=== PATIENT | male | born 1935 | race Caucasian/White ===

== ENCOUNTER 2020-09-09 14:44 | Emergency (ER) | payer MEDICARE, OTHER ==
[~2020-09-09] VITALS: Ht 177.8 cm; Wt 73.0 kg
[~2020-09-09 14:44] MED LIST: DIGO250T4 PO; FURO20TA4 PO; METOPROLOL PO; NPH,100I SQ; WARF7.5T22 PO
[2020-09-09] MEDS ORDERED: ASPIRIN 325MG TABLET PO ONE (15:00)
[2020-09-09 16:33] LABS: BASOPHILS % 0.2 % (0.0-2.0); EOSINOPHILS % 0.7 % (0.0-5.0); HEMATOCRIT. 41.2 % (42.0-52.0); HEMOGLOBIN. 13.4 g/dL (14.0-18.0); LYMPHOCYTES % 9.8 % (20.0-50.0); MEAN CORPUSCULAR HEMOGLOBIN 31.1 pg (28.0-32.0); MEAN CORPUSCULAR VOLUME 95.4 fL (80.0-94.0); MEAN PLATELET VOLUME 8.1 fl (7.4-10.4); MONOCYTES % 5.3 % (2.0-8.0); PLATELET 153 x1000/uL (130-400); RED BLOOD CELL COUNT 4.32 mill/uL (4.7-6.1); RED CELL DISTRIBUTION WIDTH 15.2 % (11.6-14.6)
[2020-09-09 16:36] LABS: CHLORIDE 107 mEq/L (98-107)
[2020-09-09 16:39] LABS: INR 2.5; PROTHROMBIN TIME 25.2 sec (9.6-11.0)
[2020-09-09] MEDS ORDERED: METOPROLOL TARTRATE 25MG TABLET PO ONE (18:15)
[2020-09-09 20:38] VITALS: BP 131/63
== END 2020-09-09 20:57 | disposition home or self-care (01) ==
LOC: ER 14:51
DX: I48.91 Unspecified atrial fibrillation (principal); M79.641 Pain in right hand; E78.00 Pure hypercholesterolemia, unspecified; D64.9 Anemia, unspecified; I25.10 Atherosclerotic heart disease of native coronary artery without angina pectoris; K59.00 Constipation, unspecified; E11.9 Type 2 diabetes mellitus without complications; I10 Essential (primary) hypertension; I25.2 Old myocardial infarction; Z86.73 Personal history of transient ischemic attack (TIA), and cerebral infarction without residual deficits; Z87.440 Personal history of urinary (tract) infections; Z87.09 Personal history of other diseases of the respiratory system; Z95.0 Presence of cardiac pacemaker; Z79.899 Other long term (current) drug therapy
CPT/HCPCS: 36415; 71045; 80053; 80162; 83880; 84484; 85025; 86850; 86900; 93005; 99285

== ENCOUNTER 2021-06-06 09:16 | Emergency (ER) | payer OTHER ==
[~2021-06-06] VITALS: Ht 182.9 cm; Wt 75.0 kg
[2021-06-06] MEDS ORDERED: IOHEXOL-350 100 ML BOTTLE ONE ×2 (09:52→14:40)
[2021-06-06 10:42] LABS: BASOPHILS % 0.4 % (0.0-2.0); EOSINOPHILS % 0.9 % (0.0-5.0); HEMATOCRIT. 35.5 % (42.0-52.0); HEMOGLOBIN. 11.6 g/dL (14.0-18.0); LYMPHOCYTES % 29.5 % (20.0-50.0); MEAN CORPUSCULAR HEMOGLOBIN 29.3 pg (28.0-32.0); MEAN CORPUSCULAR VOLUME 89.6 fL (80.0-94.0); MEAN PLATELET VOLUME 7.4 fl (7.4-10.4); MONOCYTES % 10.2 % (2.0-8.0); PLATELET 295 x1000/uL (130-400); RED BLOOD CELL COUNT 3.96 mill/uL (4.7-6.1); RED CELL DISTRIBUTION WIDTH 16.1 % (11.6-14.6)
[2021-06-06 10:49] LABS: CHLORIDE 104 mEq/L (98-107)
[2021-06-06 10:53] LABS: ETHANOL BLOOD < 10 mg/dL
[2021-06-06 11:51] LABS: CLARITY URINE CLOUDY (CLEAR); COLOR URINE YELLOW (YELLOW); KETONES URINE NEGATIVE (NEGATIVE); LEUKOCYTE ESTERASE URINE 3+ (NEGATIVE); NITRITE URINE POSITIVE (NEGATIVE); OCCULT BLOOD URINE 1+ (NEGATIVE); PROTEIN URINE TRACE (NEGATIVE); SPECIFIC GRAVITY URINE 1.017 (1.005-1.030)
[2021-06-06 12:15] LABS: *BENZODIAZEPINES SCREEN URINE NEGATIVE (NEGATIVE); *COCAINE SCREEN URINE NEGATIVE (NEGATIVE); METHADONE URINE SCREEN NEGATIVE (NEGATIVE); OPIATES URINE SCREEN NEGATIVE (NEGATIVE)
[2021-06-06 12:16] LABS: *AMPHETAMINES SCREEN URINE NEGATIVE (NEGATIVE); *BARBITURATES SCREEN URINE NEGATIVE (NEGATIVE); CANNABINOID URINE SCREEN NEGATIVE (NEGATIVE); PHENCYCLIDINE URINE SCREEN NEGATIVE (NEGATIVE)
[2021-06-06] MEDS ORDERED: CEFTRIAXONE 1 G PREMIX 50 ML IV ONE (12:45)
[2021-06-06 14:30] VITALS: BP 115/68
[2021-06-06 16:01] LABS: INR 5.9
== END 2021-06-06 15:44 | disposition short-term general hospital (02) ==
LOC: ER 09:16 → CANBEDREQ 16:04
DX: R41.82 Altered mental status, unspecified (principal); N39.0 Urinary tract infection, site not specified; I11.0 Hypertensive heart disease with heart failure; I50.9 Heart failure, unspecified; I48.91 Unspecified atrial fibrillation; D64.9 Anemia, unspecified; I25.10 Atherosclerotic heart disease of native coronary artery without angina pectoris; I69.351 Hemiplegia and hemiparesis following cerebral infarction affecting right dominant side; E11.9 Type 2 diabetes mellitus without complications; E78.00 Pure hypercholesterolemia, unspecified; I25.2 Old myocardial infarction; Z95.0 Presence of cardiac pacemaker; Z79.01 Long term (current) use of anticoagulants; Z87.440 Personal history of urinary (tract) infections
CPT/HCPCS: 36415; 70450; 70496; 70498; 71045; 80053; 80305; 80320; 81003; 82962; 84484; 85025; 85610; 87086; 87186; 93005; 96365; 99285; J0696; Q9967; G0480

== ENCOUNTER 2021-07-25 20:37 | Emergency (ER) | payer OTHER ==
[~2021-07-25] VITALS: Ht 188 cm; Wt 113.0 kg
[~2021-07-25 20:37] MED LIST changes: +CALCIUM CHLORIDE 1GM/10ML SYR IV ONE; +EPINEPHRINE 0.1MG/ML (1:10,000) 10ML SYR ONE; +SODIUM BICARBONATE 8.4% 1 MEQ/ML 50ML SYR IV ONE
[2021-07-25 20:40] VITALS: BP 0/0
== END 2021-07-25 22:49 ==
LOC: ER 20:37
DX: I46.9 Cardiac arrest, cause unspecified (principal); E11.65 Type 2 diabetes mellitus with hyperglycemia; I25.2 Old myocardial infarction; I50.9 Heart failure, unspecified; I49.9 Cardiac arrhythmia, unspecified; Z95.0 Presence of cardiac pacemaker; Z86.73 Personal history of transient ischemic attack (TIA), and cerebral infarction without residual deficits; Z79.01 Long term (current) use of anticoagulants
CPT/HCPCS: 31500; 82962; 99285; J3490